=== PATIENT | female | born 1990 | race Caucasian/White ===

== ENCOUNTER → 2018-04-19 | Outpatient (CLI) | payer OTHER, BC | LOC: BMCIMAGING 08:50 | PROVIDERS: ATTEND Emergency Medicine | DX: S61.219A Laceration without foreign body of unspecified finger without damage to nail, initial encounter (principal) ==

== ENCOUNTER → 2018-06-16 | Outpatient (CLI) | payer BC | LOC: BMCIMAGING 09:53 | PROVIDERS: ATTEND Advanced Practice Midwife | DX: R92.8 Other abnormal and inconclusive findings on diagnostic imaging of breast (principal) ==